=== PATIENT | female | born 1960 | race Caucasian/White ===

== ENCOUNTER 2023-03-27 13:39 | Emergency (ER) | payer BC, SELFPAY ==
--- NOTE | ~2023-03-27 | XR_ITS ---
AP view of the pelvis and AP and lateral views of the right hip Clinical history: Pain Findings: No acute fracture or dislocation is seen. Osseous alignment is anatomic. Bilateral hip and SI joint spaces are preserved. Soft tissues are unremarkable. Impression: No significant abnormality is seen. Reviewed, dictated and finalized at [facility]. Impression: No significant abnormality is seen.
--- NOTE | ~2023-03-27 | XR_ITS ---
Thoracic spine: Clinical Indication: Pain AP and lateral views were performed. No fracture is seen. There is normal alignment of the vertebrae. The intervertebral disc spaces appe ar normal. Paravertebral soft tissues appear normal. Impression: No significant abnormalities noted. Reviewed, dictated and finalized at [facility]. Impression: No significant abnormalities noted.
[2023-03-27 13:51] VITALS: BP 114/72; PULSE 90; RESP 16; TEMP 36.7; O2SAT 98
[2023-03-27] MEDS: KETOROLAC (*BKC) 60 MG/2 ML VIAL IM (14:20)
--- NOTE | 2023-03-27 14:31 | ED.GENADULT ---
HPI - General Adult General Chief complaint: Extremity Injury, Upper Stated complaint: Fall Injury/Right Hip Source: patient Mode of arrival: ambulatory Limitations: no limitations History of Present Illness HPI narrative: Patient presents for evaluation after experiencing a fall earlier today. She was walking down some wet steps at the [facility] when she fell down three steps. She did not hit her head. No LOC. Not on blood thinners. She hit her back and landed on her buttocks. She now has 7/10 pain in thoracic spinal region and in posterior pelvis. No bladder/bowel incontinence. No hematuria. She has not taken any medication for her symptoms. Related Data Home Medications Medication Instructions Recorded Confirmed acyclovir 400 mg tablet 400 mg PO Q8-10H 03/27/23 03/27/23 citalopram 40 mg tablet 40 mg PO DAILY 03/27/23 03/27/23 cyclobenzaprine 10 mg tablet 10 mg PO BID PRN Muscle Pain 03/27/23 03/27/23 metformin 500 mg tablet 500 mg PO BID 03/27/23 03/27/23 simvastatin 40 mg tablet 40 mg PO DAILY 03/27/23 03/27/23 tramadol 50 mg tablet 50 mg PO TID PRN Pain 03/27/23 03/27/23 Allergies Allergy/AdvReac Type Severity Reaction Status Date / Time No Known Allergies Allergy Unverified 05/25/12 10:23 Review of Systems Review of Systems: CONSTITUTIONAL: Denies fever, chills, or sweats. EYES: Denies visual changes, redness, or discharge. ENT: Denies rhinorrhea, congestion, sore throat, or otalgia. CARDIOVASCULAR: Denies chest pain, palpitations, or edema. RESPIRATORY: Denies cough or dyspnea. GASTROINTESTINAL: Denies abdominal pain, nausea, vomiting, or diarrhea. GENITOURINARY: Denies dysuria or hematuria. SKIN: Denies rash or itching. MUSCULOSKELETAL: Reports pain in thoracic spinal region and over posterior pelvis/right hip NEUROLOGIC: Denies headache, numbness, dizziness, or weakness. PSYCHIATRIC: Denies anxiety or depression. [facility] Past Medical History Medical History Anxiety Hyperlipidemia Surgical History Surgical History No pertinent past surgical history Family History Family History Mother Family history non-contributory Social History Social History Smoking status: Never smoker Substance use: never Gender identity (if verbalized by the patient): Female Spiritual care concerns: No Exam Narrative: GENERAL: Well-appearing, well-nourished, and in no acute distress. HEAD: Normocephalic, atraumatic. EYES: PERRLA and EOMI. ENT: Nares clear, no rhinorrhea or epistaxis. Mucous membranes moist. Oropharynx without tonsillar hypertrophy exudate or other lesions. Bilateral TMs pearly castillo nonbulging NECK: Supple. No adenopathy or masses. No carotid bruits or JVD CHEST: Clear to auscultation. No respiratory distress. No wheezes rales or rhonchi HEART: Regular rate and rhythm. No murmur heard. Normal peripheral pulses. ABDOMEN: Soft, nontender, nondistended, normal active bowel sounds. EXTREMITIES: Normal range of motion. No edema. BACK: No tenderness in thoracic or lumbar spinal region. There is tenderness over the posterior pelvis on the right. SKIN: Warm, dry, no rash. NEURO: No focal deficits. Alert and oriented x3. PSYCH: Normal mood and affect. Course Course Emergency Course: This is a 62-year-old female who presented for evaluation after experiencing a fall earlier today. X rays of pelvis, right hip and thoracic spinal region are all negative. Exam consistent with contusion. Will dc with tramadol. Follow up with primary provider. Go to the emergency department for worsening symptoms. Pt in agreement with plan of care. Level of Care: Express Care Visit Vital Signs Vital signs: Vital Signs Temperature 36.7 C 03/27/23 13:51 Pul
== END 2023-03-27 14:33 | disposition home or self-care (01) ==
PROVIDERS: Emergency Provider Nurse Practitioner; PCP Family Medicine
DX: S70.01XA Contusion of right hip, initial encounter (principal); S20.224A Contusion of middle back wall of thorax, initial encounter; W10.9XXA Fall (on) (from) unspecified stairs and steps, initial encounter; E78.5 Hyperlipidemia, unspecified; F41.9 Anxiety disorder, unspecified
CPT/HCPCS: 72072; 73502; 96372; 99214; G0463; J1885